=== PATIENT | female | born 1960 | race Caucasian/White ===

== ENCOUNTER 2022-08-27 15:02 | Inpatient (IN) | payer BC ==
[2022-08-27 15:38] LABS: #Basophils 0.1 10x3/uL (0.0-0.2); #Monocytes 0.5 10x3/uL (0.0-1.1); #Neutrophils 4.3 10x3/uL (1.5-8.4); %Basophils 0.7 % (0.0-2.0); %Eosinophils 0.4 % (0.0-6.0); %Lymphocytes 28.7 % (18.0-47.0); %Monocytes 7.3 % (0.0-10.0); %Neutrophils 62.8 % (40.0-75.0); Hemoglobin 12.7 g/dL (12.0-15.5); Mean Corpuscular HGB CONC 34.6 g/dL (32.0-36.0); Mean Corpuscular Hemoglobin 30.5 pg (27.0-33.0); Mean Corpuscular Volume 88.2 fl (81.6-98.3); Mean Platelet Volume 8.7 fl (7.4-10.4); Platelet Count 272 10x3/uL (150-450); RBC Distribution Width 12.3 % (11.5-14.5); Red Blood Cell (RBC) Count 4.16 10x6/uL (3.90-5.03); White Blood Cell (WBC) Count 6.9 10x3/uL (3.5-10.5)
[2022-08-27] MEDS ORDERED: Morphine 4 MG/ML VIAL ONE (15:40)
[2022-08-27] MEDS ORDERED: Ondansetron PF 4 MG/2 ML Vial ONE (15:40)
[2022-08-27 16:05] LABS: ALT (SGPT) 23 U/L (8-55); AST (SGOT) 21 U/L (5-34); Albumin 4.4 g/dL (3.4-4.8); Alkaline Phosphatase 67 U/L (40-110); Anion Gap 18 mmol/L (10-20); BUN (Urea Nitrogen) 16 mg/dL (9.8-20.1); Bilirubin, Total 0.4 mg/dL (0.2-1.2); Calc. Creatinine Clearance 0 mL/min (70-130); Calcium 9.5 mg/dL (7.8-10.44); Carbon Dioxide 21 mmol/L (23-31); Chloride 95 mmol/L (98-107); Estimated GFR 77; Globulin 2.5 g/dL (2.4-3.5); Glucose 138 mg/dL (80-115); Lipase 62 U/L (8-78); Protein, Total 6.9 g/dL (5.8-8.1); Sodium 130 mmol/L (136-145)
[2022-08-27] MEDS ORDERED: Communication Order-Pharmacy FS SCH (17:00)
[2022-08-27] MEDS ORDERED: Dextrose 5% in Water 1,000 ML IV PRN (19:14)
[2022-08-27] MEDS ORDERED: Guaifenesin DM 100-10/5 ML UDCUP PO PRN (19:14)
[2022-08-27] MEDS ORDERED: Acetaminophen 325 MG TAB PO PRN (19:14)
[2022-08-27] MEDS ORDERED: Senokot S 8.6-50 MG TAB PO PRN (19:14)
[2022-08-27] MEDS ORDERED: Dextrose 50% Abboject 50 ML SYRINGE SLOW IVP PRN (19:14)
[2022-08-27] MEDS ORDERED: Ondansetron PF 4 MG/2 ML Vial IVP PRN (19:14)
[2022-08-27] MEDS ORDERED: Calcium Carbonate 500 MG ChewTAB PO PRN (19:14)
[2022-08-27] MEDS ORDERED: Ipratropium/Albuterol 3 ML NEB NEB PRN (19:18)
[2022-08-27] MEDS ORDERED: Sodium Chloride 0.9% 1,000 ML IV SCH (23:30)
[2022-08-27] MEDS ORDERED: busPIRone HCl 5 MG TAB PO SCH (23:30)
[2022-08-27] MEDS ORDERED: Morphine 2 MG/ML VIAL ONE (23:47)
[2022-08-28] MEDS ORDERED: Morphine 2 MG/ML VIAL SLOW IVP PRN (00:07)
[2022-08-28] MEDS ORDERED: Metoprolol Tartrate 25 MG TAB ONE (01:32)
[2022-08-28] MEDS ORDERED: Famotidine/PF 20 mg/2ml Vial ONE (01:33)
[2022-08-28] MEDS: Famotidine/PF 20 mg/2ml Vial SLOW IVP SCH ×3 (01:40→21:11)
[2022-08-28] MEDS: Metoprolol Tartrate 25 MG TAB PO SCH ×3 (01:40→21:12)
[2022-08-28 02:17] LABS: SARS-CoV-2 NAA Rapid Test Not Detected (NotDetected)
[2022-08-28 03:51] LABS: Anion Gap 12 mmol/L (10-20); BUN (Urea Nitrogen) 13 mg/dL (9.8-20.1); Calc. Creatinine Clearance 0 mL/min (70-130); Calcium 9.1 mg/dL (7.8-10.44); Carbon Dioxide 26 mmol/L (23-31); Cardiac Risk 2.7 (Less than 4.5); Chloride 103 mmol/L (98-107); Cholesterol 174 mg/dl (< 200 Desired); Estimated GFR 85; Glucose 156 mg/dL (80-115); HDL Cholesterol 65 mg/dL (>60 Neg Risk); LDL Cholesterol, Calculated 96 mg/dL; Potassium 4.3 mmol/L (3.5-5.1); Sodium 137 mmol/L (136-145); Triglycerides 66 mg/dL (Less than 150)
[2022-08-28] MEDS ORDERED: Nitroglycerin 50 MG/250 ML BOT 250 ML ONE (07:04)
[2022-08-28] MEDS ORDERED: Heparin 10,000 UNITS/ 10 ML VIAL ONE (07:04)
[2022-08-28] MEDS ORDERED: Lidocaine 1% (PF) 30 ML VIAL ONE (07:04)
[2022-08-28] MEDS ORDERED: Verapamil 5 MG/2 ML VIAL ONE (07:05)
[2022-08-28] MEDS ORDERED: Mometasone/Formoterol 200/5 60 PUFF INH ONE (07:20)
[2022-08-28] MEDS: Mometasone/Formoterol 200/5 60 PUFF INH SCH ×2 (07:23→19:41)
[2022-08-28] MEDS ORDERED: Midazolam HCl 2 mg/2 ml Vial ONE (08:13)
[2022-08-28] MEDS ORDERED: Fentanyl 100 MCG/2 ML VIAL ONE (08:13)
[2022-08-28] MEDS ORDERED: Bivalirudin 250 MG VIAL ONE (08:14)
[2022-08-28] MEDS ORDERED: Aspirin 325 MG TAB ONE (09:00)
[2022-08-28] MEDS ORDERED: TICAGRELOR 90 MG TABLET ONE (09:00)
[2022-08-28] MEDS ORDERED: Sodium Chloride 0.9% 1,000 ML IV SCH ×2 (09:45→10:00)
[2022-08-28] MEDS ORDERED: Iopamidol 300 61% 100 ML VIAL FS ONE (09:49)
[2022-08-28] MEDS ORDERED: Iopamidol 300 61% 50 ML VIAL FS ONE (09:49)
[2022-08-28 11:32] VITALS: BMI 29.2
[2022-08-28] MEDS ORDERED: FLU VACC QS2022-23(6MOS UP)/PF 60 MCG/0.5 ML SYRINGE IM ONE (13:00)
[2022-08-28 13:12] LABS: Hemoglobin A1c 7.2 % (4.0-6.0)
[2022-08-28] MEDS: Aspirin 81 mg Enteric Coated Tablet PO SCH (14:44)
[2022-08-28] MEDS: Lisinopril 10 MG TAB PO SCH (14:44)
[2022-08-28] MEDS: HumaLOG 300 UNITS/3 ML VIAL SC PRN (17:54)
[2022-08-28 19:45] LABS: Bilirubin Neg (Negative); Blood, Urine Negative (Negative); Clarity Clear (Clear); Glucose, Urine (Dipstick) >=1000 mg/dL (Negative); Ketone, Urine Negative (Negative); Leukocyte Negative (Negative); Nitrite Negative (Negative); Protein, Urine (Dipstick) Negative (Neg-Trace); Specific Gravity, Urine 1.015 (1.005-1.030); Urobilinogen Normal mg/dL (Less than 2)
[2022-08-28 20:50] LABS: Bacteria/HPF None Seen HPF (None Seen); RBC/HPF 0-3 HPF (0-3); Squamous Epithelial 0-3 HPF (0-3); WBC/HPF 0-3 HPF (0-3)
[2022-08-28] MEDS ORDERED: Montelukast Sodium 10 mg Tablet PO SCH (21:00)
[2022-08-28] MEDS ORDERED: busPIRone HCl 5 MG TAB PO SCH (21:00)
[2022-08-28] MEDS: TICAGRELOR 90 MG TABLET PO SCH (21:12)
[2022-08-29] MEDS: HumaLOG 300 UNITS/3 ML VIAL SC PRN ×2 (00:15→06:07)
[2022-08-29 03:52] LABS: #Eosinphils 0.1 10x3/uL (0.0-0.5); #Monocytes 0.5 10x3/uL (0.0-1.1); #Neutrophils 3.9 10x3/uL (1.5-8.4); %Basophils 0.5 % (0.0-2.0); %Eosinophils 1.3 % (0.0-6.0); %Lymphocytes 27.6 % (18.0-47.0); %Monocytes 7.8 % (0.0-10.0); %Neutrophils 62.6 % (40.0-75.0); Hemoglobin 11.9 g/dL (12.0-15.5); Mean Corpuscular HGB CONC 34.2 g/dL (32.0-36.0); Mean Corpuscular Hemoglobin 30.9 pg (27.0-33.0); Mean Corpuscular Volume 90.4 fl (81.6-98.3); Mean Platelet Volume 8.6 fl (7.4-10.4); Platelet Count 226 10x3/uL (150-450); RBC Distribution Width 12.1 % (11.5-14.5); Red Blood Cell (RBC) Count 3.85 10x6/uL (3.90-5.03); White Blood Cell (WBC) Count 6.3 10x3/uL (3.5-10.5)
[2022-08-29 04:05] LABS: ALT (SGPT) 170 U/L (8-55); AST (SGOT) 93 U/L (5-34); Albumin 3.9 g/dL (3.4-4.8); Alkaline Phosphatase 116 U/L (40-110); Anion Gap 12 mmol/L (10-20); BUN (Urea Nitrogen) 9 mg/dL (9.8-20.1); Bilirubin, Total 0.4 mg/dL (0.2-1.2); Calc. Creatinine Clearance 98 mL/min (70-130); Calcium 9.1 mg/dL (7.8-10.44); Carbon Dioxide 27 mmol/L (23-31); Chloride 106 mmol/L (98-107); Estimated GFR 97; Globulin 2.6 g/dL (2.4-3.5); Glucose 79 mg/dL (80-115); Potassium 4.1 mmol/L (3.5-5.1); Protein, Total 6.5 g/dL (5.8-8.1); Sodium 141 mmol/L (136-145)
[2022-08-29] MEDS: Mometasone/Formoterol 200/5 60 PUFF INH SCH (07:00)
[2022-08-29] MEDS: Lisinopril 10 MG TAB PO SCH (08:04)
[2022-08-29] MEDS: Metoprolol Tartrate 25 MG TAB PO SCH (08:04)
[2022-08-29] MEDS: Famotidine/PF 20 mg/2ml Vial SLOW IVP SCH (08:05)
[2022-08-29] MEDS: TICAGRELOR 90 MG TABLET PO SCH (08:05)
[2022-08-29] MEDS: Aspirin 81 mg Enteric Coated Tablet PO SCH (08:05)
[2022-08-29 08:06] VITALS: BP 119/79
[2022-08-29] MEDS ORDERED: Ketorolac Tromethamine 30 MG/ML VIAL IVP SCH (09:00)
[2022-08-29 10:13] VITALS: TEMP 97.7
== END 2022-08-29 11:15 | disposition home or self-care (01) | DRG 247 ==
LOC: CSHERS 15:02 → INTOOBSV 21:44 → CSHERHOLD 21:44 → CSHIMCU 08-28 10:45 → OBSVTOIN 08-29 10:06
PROVIDERS: ADMIT Student in an Organized Health Care Education/Training Program; ATTEND Nurse Practitioner Acute Care
PROC: 027034Z Dilation of Coronary Artery, One Artery with Drug-eluting Intraluminal Device, Percutaneous Approach (ICD-10-PCS; principal; 2022-08-28)
PROC: 4A023N7 Measurement of Cardiac Sampling and Pressure, Left Heart, Percutaneous Approach (ICD-10-PCS; 2022-08-28)
PROC: B2111ZZ Fluoroscopy of Multiple Coronary Arteries using Low Osmolar Contrast (ICD-10-PCS; 2022-08-28)
PROC: B2151ZZ Fluoroscopy of Left Heart using Low Osmolar Contrast (ICD-10-PCS; 2022-08-28)
DX: I25.110 Atherosclerotic heart disease of native coronary artery with unstable angina pectoris (principal); E87.1 Hypo-osmolality and hyponatremia; R07.89 Other chest pain; Z20.822 Contact with and (suspected) exposure to COVID-19; F41.9 Anxiety disorder, unspecified; F32.A Depression, unspecified; N18.2 Chronic kidney disease, stage 2 (mild); I12.9 Hypertensive chronic kidney disease with stage 1 through stage 4 chronic kidney disease, or unspecified chronic kidney disease; E11.22 Type 2 diabetes mellitus with diabetic chronic kidney disease; I34.0 Nonrheumatic mitral (valve) insufficiency; J45.40 Moderate persistent asthma, uncomplicated; Z79.899 Other long term (current) drug therapy; Z79.82 Long term (current) use of aspirin; Z79.84 Long term (current) use of oral hypoglycemic drugs; Z90.711 Acquired absence of uterus with remaining cervical stump; Z82.49 Family history of ischemic heart disease and other diseases of the circulatory system; Z88.1 Allergy status to other antibiotic agents; Z88.8 Allergy status to other drugs, medicaments and biological substances; Z90.49 Acquired absence of other specified parts of digestive tract; Z98.51 Tubal ligation status; Z82.3 Family history of stroke; Z88.6 Allergy status to analgesic agent
CPT/HCPCS: 36415; 36416; 71045; 80048; 80053; 80061; 81001; 83036; 83690; 84443; 84484; 85025; 85379; 92928; 93005; 93010; 93458; 94664; 96374; 96375; 96376; 99152; 99153; C1725; C1769; C1874; C1894; C9600; G0378; J0583; J1644; J1815; J1885; J2001; J2250; J2270; J2272; J2405; J3010; J7050; Q9967; S0028; U0002